=== PATIENT | female | born 1960 | race Caucasian/White ===

== ENCOUNTER 2023-03-28 18:24 | Emergency (ER) | payer OTHER ==
[2023-03-28 18:42] VITALS: O2SAT 99
--- NOTE | 2023-03-28 19:13 | ED Physician Documentation ---
History of Present Illness - Stated complaint Stated Complaint: FACE INJ - Chief complaint Chief Complaint: Trauma Hd/Nk - History obtained from History obtained from: Patient - History of Present Illness Pain level max: 3 Pain level now: 3 - Additonal information Additional information: Patient is a 62-year-old female who presents to the emergency department stating that she was hiking in [place] yesterday when she tripped and fell landing on the left side of her face and hitting a rock. No loss of consciousness. No vomiting. Is not on blood thinners. Noted increased swelling and bruising today. No vision changes. Has pain to the left side of her face. She states she is not having any difficulty or pain with eating and drinking. No lacerations. Tetanus up-to-date. Review of Systems Eyes: denies: Loss of vision, Decreased vision, Photophobia PD PAST MEDICAL HISTORY - Past Medical History Past Medical History: No - Past Surgical History Past Surgical History: No - Allergies Allergies/Adverse Reactions: Allergies Allergy/AdvReac Type Severity Reaction Status Date / Time No Known Drug Allergies Allergy Verified 03/28/23 18:38 - Living Situation Living Arrangement: reports: At home - Social History Does the pt have substance abuse?: No - Family History Family history: reports: Non contributory PD ED PE NORMAL - Vitals Vital signs reviewed: Yes - General General: Alert and oriented X 3, No acute distress - HEENT HEENT: EOMI, Moist mucous membranes, Pharynx benign, Other (L facial contusion and swelling. subconjunctival hemorrhage L eye. no hyphema. diffuse L sided tenderness. ) - Neck Neck: Supple, no meningeal sign, No bony TTP - Cardiac Cardiac: RRR, Strong equal pulses - Respiratory Respiratory: No respiratory distress, Clear bilaterally - Abdomen Abdomen: Soft, Non tender, Non distended - Back Back: No spinal TTP - Derm Derm: Warm and dry - Extremities Extremities: No edema, No calf tenderness / cord - Neuro Neuro: Alert and oriented X 3, neonatal intensive care nurse 2-12 intact, No motor deficit, No sensory deficit, Normal speech Eye Opening: Spontaneous Motor: Obeys Commands Verbal: Oriented GCS Score: 15 Results - Vitals Vitals: Vital Signs - 24 hr 03/28/23 03/28/23 18:35 21:02 Temperature 36.3 C L Heart Rate 67 52 L Respiratory 20 15 Rate Blood Pressure 163/75 H 158/64 H O2 Saturation 99 99 Oxygen O2 Source Room air - Rads (name of study) head Ct Relevant Findings:: Final report received, See rad report maxillofacial CT Relevant Findings:: Final report received, See rad report PD Medical Decision Making - ED course Complexity details: reviewed results, re-evaluated patient, considered differential, d/w patient, d/w family ED course: No acute findings on head CT or maxillofacial CT other than cheek ecchymosis and swelling. No vision changes. No hyphema. Does have a subconjunctival hemorrhage. She is not on blood thinners. We will continue Tylenol at home as needed for pain. We will have her follow-up with her PCP for further care. No other acute injuries. Patient counseled regarding signs and symptoms for which I believe and urgent re-evaluation would be necessary. Patient with good understanding of and agreement to plan and is comfortable going home at this time This document was made in part using voice recognition software. While efforts are made to proofread this document, sound alike and grammatical errors may occur. Departure - Departure Disposition: 01 Home, Self Care Clinical Impression: Facial contusion Qualifiers: Encounter type: initial encounter Qualified Code(s): S00.83XA - Contusion of other part of head, initial encounter Condition: Good Instructions: ED Contusion Face Follow-Up: your,doctor in 1 week [Other] Comments: Please follow-up with your doctor for further care as needed. Your CT scans did not show any evidence of acute fractures today. Your CT scan readings are below. You can use Tylenol as needed for pain. Please return if you worsen. PROCEDURE: HEAD WO INDICATIONS: fall, head injury yesterday TECHNIQUE: Noncontrast 4.5 mm thick angled axial sections acquired from the foramen magnum to the vertex. For radiation dose reduction, the following was used: automated exposure control, adjustment of mA and/or kV according to patient size. COMPARISON: Correlation is made with the accompanying maxillofacial CT. FINDINGS: Image quality: Excellent. CSF spaces: Basal cisterns are patent. No extra-axial fluid collections. Ventricles are normal in size and shape. Brain: No midline shift. No intracranial masses or hemorrhage. Mar-white matter interface is normal. Skull and face: There is partial visualization of the known left cheek soft tissue swelling and soft tissue hematoma. No associated facial bone fracture can be seen. Calvarium and visualized facial bones are intact, without suspicious lesions. Sinuses: Visualized sinuses and mastoids are clear. IMPRESSION: Left cheek soft tissue swelling and soft tissue hematoma partially seen. No intracranial hemorrhage is seen. No significant intracranial abnormality is seen. PROCEDURE: MAXILLOFACIAL WO INDICATIONS: fall, L facial injury yesterday TECHNIQUE: Noncontrast 1.5 mm thick axial images acquired from the mandible through the frontal sinuses, with coronal and sagittal reformatting. For radiation dose reduction, the following was used: automated exposure control, adjustment of mA and/or kV according to patient size. COMPARISON: Correlation is made with the accompanying head CT. FINDINGS: Image quality: Excellent. Bones and teeth: Orbital lópez are intact. Sinus lópez show no fracture or deformity. Nasal bones and septum are intact. Visualized portions of the mandible demonstrate no fractures or subluxation. Zygomatic arches are intact. Pterygoid plates are intact. Visualized portions of the skull base and auditory canals are intact. Sinuses: Paranasal sinuses are aerated, without fluid levels, mucosal thickening, or mucoceles. Mastoid air cells are aerated. Soft tissues: There is left cheek soft tissue swelling is seen. There is a left cheek soft tissue hematoma. No ayo soft tissue gas is identified. No definite radiopaque foreign body is seen. Vascular: Visualized vascular structures appear normal in the absence of contrast. Bony vascular foramina and canals are intact. IMPRESSION: Significant left cheek soft tissue swelling, with a left cheek soft tissue hematoma. No displaced facial bone fracture is seen. Forms: PCP List Discharge Date/Time: 03/28/23 21:10
[2023-03-28] MEDS ORDERED: ACETAMINOPHEN 325 MG TABLET PO STA (20:25)
--- NOTE | 2023-03-28 20:45 | CT Report ---
PROCEDURE: MAXILLOFACIAL WO INDICATIONS: fall, L facial injury yesterday TECHNIQUE: Noncontrast 1.5 mm thick axial images acquired from the mandible through the frontal sinuses, with co adrianne and sagittal reformatting. For radiation dose reduction, the following was used: automated ex posure control, adjustment of mA and/or kV according to patient size. COMPARISON: Correlation is made with the accompanying head CT. FINDINGS: Image quality: Excellent. Bones and teeth: Orbital lópez are intact. Sinus lópez show no fracture or deformity. Nasal bones and septum are intact. Visualized portions of the mandible demonstrate no fractures or subluxation. Zygomatic arches are intact. Pterygoid plates are intact. Visualized portions of the skull base an d auditory canals are intact. Sinuses: Paranasal sinuses are aerated, without fluid levels, mucosal thickening, or mucoceles. Mas toid air cells are aerated. Soft tissues: There is left cheek soft tissue swelling is seen. There is a left cheek soft tissue he matoma. No ayo soft tissue gas is identified. No definite radiopaque foreign body is seen. Vascular: Visualized vascular structures appear normal in the absence of contrast. Bony vascular fo ramina and canals are intact. IMPRESSION: Significant left cheek soft tissue swelling, with a left cheek soft tissue hematoma. No displaced facial bone fracture is seen. Reviewed by: Joshua Flores MD on 03/28/2023 7:44 PM A[facility] ROSA Approved by: Joshua Flores MD on 03/28/2023 7:44 PM ANA ROSA Station ID: [id number]
--- NOTE | 2023-03-28 20:46 | CT Report ---
PROCEDURE: HEAD WO INDICATIONS: fall, head injury yesterday TECHNIQUE: Noncontrast 4.5 mm thick angled axial sections acquired from the foramen magnum to the vertex. For r adiation dose reduction, the following was used: automated exposure control, adjustment of mA and/or kV according to patient size. COMPARISON: Correlation is made with the accompanying maxillofacial CT. FINDINGS: Image quality: Excellent. CSF spaces: Basal cisterns are patent. No extra-axial fluid collections. Ventricles are normal in size and shape. Brain: No midline shift. No intracranial masses or hemorrhage. Mar-white matter interface is norm al. Skull and face: There is partial visualization of the known left cheek soft tissue swelling and soft tissue hematoma. No associated facial bone fracture can be seen. Calvarium and visualized facial bone s are intact, without suspicious lesions. Sinuses: Visualized sinuses and mastoids are clear. IMPRESSION: Left cheek soft tissue swelling and soft tissue hematoma partially seen. No intracranial hemorrhage is seen. No significant intracranial abnormality is seen. Reviewed by: Joshua Flores MD on 03/28/2023 7:45 PM A[facility] ROSA Approved by: Josuha Flores MD on 03/28/2023 7:45 PM ANA ROSA Station ID: [id number]
[2023-03-28 21:08] VITALS: BP 158/64
== END 2023-03-28 21:10 | disposition home or self-care (01) ==
LOC: ED 18:24
DX: S00.83XA Contusion of other part of head, initial encounter (principal); W01.198A Fall on same level from slipping, tripping and stumbling with subsequent striking against other object, initial encounter; Y93.01 Activity, walking, marching and hiking; Y92.89 Other specified places as the place of occurrence of the external cause
CPT/HCPCS: 70450; 70486; 99283; 99284; A9270